=== PATIENT | male | born 1955 | race Two or more races ===

== ENCOUNTER 2018-01-31 15:10 | Emergency (ER) | payer OTHER ==
[~2018-01-31] VITALS: Ht 177.8 cm; Wt 103.0 kg
[2018-01-31 17:15] LABS: Basophils # (auto) 0.1 uL; Basophils % (auto) 1.5 % (0.0-2.0); Eosinophils # (auto) 0.2 uL; Eosinophils % (auto) 3.2 % (0.0-7.0); Hematocrit 42.8 % (41.0-53.0); Hemoglobin 14.6 g/dL (13.5-17.5); Lymphocytes # (auto) 1.2 uL; Lymphocytes % (auto) 22.4 % (10.0-50.0); Mean Corpuscular Hemoglobin 31.2 pg (28.0-32.0); Mean Corpuscular Hgb Conc. 34.2 g/dL (32.0-36.0); Mean Corpuscular Volume 91.2 fL (80.0-100.0); Monocytes # (auto) 0.3 uL; Monocytes % (auto) 5.7 % (0.0-12.0); Neutrophils # (auto) 3.7 uL; Neutrophils % (auto) 67.2 % (37.0-80.0); Platelet Count (auto) 208 10^3/uL (140-450); Red Blood Cells 4.69 10^6/uL (4.5-5.90); Red Cell Distribution Width 13.3 % (11.8-14.3); White Blood Cell 5.5 10^3/uL (4.4-10.8)
[2018-01-31 17:30] LABS: INR 1.05 (0.9-1.15); Partial Thromboplastin Time 25.2 sec (23.78-33.04); Prothrombin Time 11.2 sec (9.27-12.13)
[2018-01-31 17:34] LABS: Alanine Aminotransferase 42 U/L (16-61); Albumin 3.8 g/dL (3.4-5.0); Anion Gap 9 (5-15); Aspartate Aminotransferase 24 U/L (15-37); BUN/Creatinine Ratio 15.1; Blood Urea Nitrogen 14 mg/dL (7-18); Calcium 8.4 mg/dL (8.5-10.1); Carbon Dioxide 27 mmol/L (21-32); Chloride 105 mmol/L (98-107); GFR African American 106 mL/min; GFR Non-African American 88 mL/min; Glucose 113 mg/dL (74-106); Magnesium 2.5 mg/dL (1.6-2.6); Potassium 4.1 mmol/L (3.5-5.1); Sodium 141 mmol/L (136-145)
[2018-01-31 17:38] LABS: Alkaline Phosphatase 47 U/L (45-117); Bilirubin, Total 2.1 mg/dL (0.2-1.0)
[2018-01-31 20:47] VITALS: BP 144/89
== END 2018-01-31 22:06 | disposition home or self-care (01) ==
LOC: ER 15:10
DX: R07.89 Other chest pain (principal); K80.20 Calculus of gallbladder without cholecystitis without obstruction; E78.5 Hyperlipidemia, unspecified; I48.91 Unspecified atrial fibrillation; I25.2 Old myocardial infarction; Z98.61 Coronary angioplasty status; Z90.89 Acquired absence of other organs
CPT/HCPCS: 36415; 71046; 76705; 80053; 83735; 83880; 84484; 85025; 85379; 85610; 85730; 93005; 94761